=== PATIENT | male | born 1950 | race Two or more races ===

== ENCOUNTER 2021-10-27 05:53 | Day surgery (SDC) | payer OTHER ==
[~2021-10-27 05:53] MED LIST: NAMENDA10 MG PO; NEURONTIN300 MG PO
[2021-10-27] MEDS ORDERED: PERCOCET 5-3251 EACH PO (11:40)
== END 2021-10-27 15:10 | disposition home or self-care (01) ==
LOC: CIR.AMB 05:53
PROVIDERS: ATTEND Surgery
DX: K64.5 Perianal venous thrombosis (principal)